=== PATIENT | male | born 1970 | race Two or more races ===

== ENCOUNTER 2025-02-08 15:39 | Emergency (ER) | payer MEDICAID, SELFPAY ==
[2025-02-08 15:40] VITALS: BMI 24.0
[2025-02-08 16:05] VITALS: BP 140/86; PULSE 93; RESP 19; TEMP 36.3; O2SAT 95
--- NOTE | 2025-02-08 16:10 | XR_ITS ---
Examination: Foot, right, 3 views Technique: AP, oblique, lateral views foot, 3 views Date and time of exam: January 31, 2025 1414 hours INDICATIONS: Nonhealing ulcer involving great toe, diabetes FINDINGS: Severe osteopenia. 3 mm erosion at the base of the proximal phalanx first digit Soft tissue swelling about the first digit IMPRESSION: Soft tissue swelling about the first digit 3 mm erosion at the base of the proximal phalanx first digit As clinically warranted, consider elective MRI foot without contrast follow-up
--- NOTE | 2025-02-08 16:12 | PD.EDRME ---
Rapid Medical Screening Exam [facility] Arrival date/time: 02/08/25 15:39 54-year-old male with a history of type 2 diabetes presents to the emergency room with a chief complaint of a diabetic foot ulcer to his right foot great toe. Patient states 3 weeks ago he nicked it on his shoe and since then the ulcer has progressively gotten worse. I have greeted and performed a focused initial assessment of this patient. A comprehensive ED assessment and evaluation of the patient, analysis of all test results, and completion of the medical decision making process will be conducted by additional ED providers. Chief Complaint: Wound/Laceration Vital signs: Vital Signs Temperature 97.4 F 02/08/25 16:05 Pulse Rate 93 02/08/25 16:05 Respiratory Rate 19 02/08/25 16:05 Blood Pressure 140/86 H 02/08/25 16:05 Pulse Oximetry (%) 95 02/08/25 16:05 Oxygen Delivery Method Room Air 02/08/25 16:05 Vital signs reviewed by provider: Yes
[2025-02-08 16:49] LABS: Lactate (Lactic Acid) 1.1 mMol/L (0.4-2.0)
[2025-02-08 16:52] LABS: Basophils # (Auto) 0.0 Thou/mm3 (0.0-0.2); Basophils % (Auto) 1 % (0-2.5); Eosinophils # (Auto) 0.1 Thou/mm3 (0.0-0.5); Eosinophils % (Auto) 1 % (0-10); Hematocrit 40.7 % (41.0-53.0); Hemoglobin 13.6 g/dL (13.5-16.0); Immature Granulocytes Auto 0.02 Thou/mm3 (0.00-0.00); Lymphocytes # (Auto) 2.2 Thou/mm3 (1.0-4.8); Lymphocytes % (Auto) 26 % (10-50); Mean Corpuscular HGB Conc 33.4 g/dl (31.0-37.0); Mean Corpuscular Hemoglobin 29.4 pg (25.0-35.0); Mean Corpuscular Volume 88 fL (80-100); Monocytes # (Auto) 0.6 Thou/mm3 (0.0-0.8); Monocytes % (Auto) 7 % (0-12); Neutrophils # (Auto) 5.5 Thou/mm3 (1.8-7.7); Neutrophils % (Auto) 65 % (37-80); Nucleated Red Blood Cell # 0.00 Thou/mm3 (0.00-0.00); Nucleated Red Blood Cell % 0 /100 WBC (0); Platelet Count 235 Thou/mm3 (140-440); RDW Standard Deviation 43.7 fL (35.1-43.9); Red Blood Count 4.63 Miln/mm3 (4.50-5.90); White Blood Count 8.5 Thou/mm3 (3.8-10.6)
[2025-02-08 17:23] LABS: Alanine Aminotransferase 11 U/L (10-49); Albumin, Serum 4.5 gm/dL (3.5-5.0); Albumin/Globulin Ratio 1.5 (1.2-2.2); Alkaline Phosphatase 92 U/L (46-116); Anion Gap 10 (7-16); Aspartate Amino Transferase 20 U/L (0-34); BUN/Creatinine Ratio 13 Ratio (12-20); Bilirubin,Total 0.5 mg/dL (0.3-1.2); Blood Urea Nitrogen 12 mg/dL (9-23); C-Reactive Protein < 0.5 mg/dL (0.0-0.9); Calcium 9.4 mg/dL (8.3-10.6); Calcium (Corrected) 9.4 mg/dL (8.5-10.1); Carbon Dioxide 25.2 mMol/L (20.0-31.0); Chloride 108 mMol/L (98-107); Creatinine (Component) 0.9 mg/dL (0.6-1.3); Estimated Creatinine Clearance 78.6 mL/min (>60); Globulin 3.1 gm/dL (2.3-3.5); Glucose 180 mg/dL (74-106); Osmolality,Calculated 289 (275-295); Potassium 4.2 mMol/L (3.4-5.1); Procalcitonin 0.06 ng/ml (0.0-0.49); Sodium 143 mMol/L (136-145); Total Protein 7.6 gm/dL (5.7-8.2); eGFR > 60 See Note
[2025-02-08 17:49] LABS: Glucose Estimated Average 260 mg/dL (80-131); Hemoglobin A1C 10.7 % Hgb (4.8-6.0)
[2025-02-08 17:59] LABS: Sed Rate (ESR) 16 mm/hr (0-20)
--- NOTE | 2025-02-08 19:43 | PD.EDWOUND ---
ED Wound/Laceration-RME/HPI General Chief Complaint: Wound/Laceration Stated Complaint: RIGHT GREAT TOE WOUND, HISTORY DM Arrival date/time: 02/08/25 15:39 RME / HPI RME / HPI narrative: 02/08/25 15:39 54-year-old male with a history of type 2 diabetes presents to the emergency room with a chief complaint of a diabetic foot ulcer to his right foot great toe. Patient states 3 weeks ago he nicked it on his shoe and since then the ulcer has progressively gotten worse. I have greeted and performed a focused initial assessment of this patient. A comprehensive ED assessment and evaluation of the patient, analysis of all test results, and completion of the medical decision making process will be conducted by additional ED providers. DR. BULLOCK MAIN ED EVALUATION: 54 y/o male with Hx of Type II DM presents to ED c/o wound with discharge of the right greater toe x 3 weeks. Patient has not noted active discharge, but has noticed dried discharge on his sandal to the imprint of his toe. Patient takes oral medication for management of his DM. No other concerns or complaints expressed at this time. Related Data Previous Rx's ?Medication ?Instructions ?Recorded ibuprofen 600 mg tablet 600 mg PO Q6HR PRN PAIN #30 tabs 01/02/15 Allergies Allergy/AdvReac Type Severity Reaction Status Date / Time No Known Allergies Allergy Verified 02/08/25 15:40 Review of Systems Review of Systems Systems Reviewed: All systems reviewed, normal except as documented Past Medical History Past Medical History ENDOCRINE: Positive Diabetes Mellitus Type 2 Social History SMOKING STATUS: Never smoker ED Exam Narrative Physical exam: Generally patient is alert no obvious distress heart is regular rate and rhythm lungs consultation equal bilaterally abdomen soft bowel sounds present nondistended nontender extremities show a callus with central wound to the undersurface of the right great toe. Mild amount of moist discharge. He does have a palpable dorsalis pedis pulse to the right foot. Course Quality Measures none Orders Category Date Time Status XR foot comp RT min 3V Stat Exams 02/08/25 16:10 Completed A1C [Glycohemoglobin w (eAG)] Stat Lab 02/08/25 16:24 Completed Blood Culture (Lab) Stat Lab 02/08/25 16:24 Received CBC Stat Lab 02/08/25 16:24 Completed CMP [Comprehensive Metabolic Panel] Stat Lab 02/08/25 16:24 Completed CRP [C-Reactive Protein] Stat Lab 02/08/25 16:24 Completed ESR [Sed Rate (ESR)] Stat Lab 02/08/25 16:24 Completed Lactate (Lactic Acid) Stat Lab 02/08/25 16:24 Completed Procalcitonin Stat Lab 02/08/25 16:24 Completed Vital Signs Vital signs: Vital Signs Temperature 97.4 F 02/08/25 16:05 Pulse Rate 93 02/08/25 16:05 Respiratory Rate 19 02/08/25 16:05 Blood Pressure 140/86 H 02/08/25 16:05 Pulse Oximetry (%) 95 02/08/25 16:05 Oxygen Delivery Method Room Air 02/08/25 16:05 Wound / Laceration MDM Narrative MDM Narrative:: Scribe Attestation: I, Niurka Tarango, am scribing for and in the presence of Dr. Bullock. Provider Notation: Although this document has been carefully reviewed, there may still be some phonetic and other typographical errors.? These errors are purely grammatical due to imperfections in the software program and should not be construed in any way to? compromise the substance of the patient's medical care during this visit. I interpreted all lab work. X-ray shows 3 mm erosion at the base of the proximal phalanx of the right first toe. Patient has a primary care physician and will need to be referred to a edm operator. Patient's blood sugar is 180. He is a diabetic but not insulin-dependent. He is compliant with his medications. Patient was started on cephalexin and Bactrim to be taken as prescribed. Patient data External records reviewed:: [facility] previous records (No prior ED records available for review.) Clinical information provided by:: patient Social determinants that could affect healthcare access:: none Patient has the following chronic illnesses:: Type II DM How is presenting disease/condition affected by chronic disease/condition?: exacerbated by Evaluation data The following diagnostics were reviewed and interpreted by me:: lab results and radiology exam(s) Lab and/or radiology exams considered but not ordered:: None Interpretation Summary: RADIOLOGY Right Foot X-Ray: FINDINGS: Severe osteopenia. 3 mm erosion at the base of the proximal phalanx first digit Soft tissue swelling about the first digit IMPRESSION: Soft tissue swelling about the first digit 3 mm erosion at the base of the proximal phalanx first digit As clinically warranted, consider elective MRI foot without contrast follow-up Medications / Prescriptions Medications or Prescriptions considered but not ordered:: None Medication administrations:: See above if any. Consultations Consultation(s) initiated? (list below): No Diagnosis Wound Differential Diagnosis: laceration, abscess, abrasion and other (Cellulitis) Most likely diagnosis given after review of the tests above:: None Admission Indicated Admission indicated?: not indicated Explain why admission is indicated or not indicated:: Patient does not meet admission criteria. Admission Request Was there a request for admission?: No Disposition Plan Disposition Plan: Discharge Discharge Attestation Discharge Attestation: The patient and all family members were given an opportunity to ask questions and understood the discharge instructions. Discharge instructions specifically effects, indications for sooner follow up or return to the emergency department, and the expected course of current diagnosis. Patient condition: Stable Discharge Plan Plan Patient Disposition: HOME (Self Care) Prescriptions/Referrals Prescriptions/Med Rec: No Action ibuprofen 600 MG tablet 600 mg PO Q6HR PRN (Reason: PAIN) Qty: 30 0RF Referrals: Bala Lewis MD [Primary Care Provider] - In 1 week Problem List Clinical Impression: Osteomyelitis, Diabetes mellitus Patient/Caregiver Discharge Instructions Additional Instructions: Take the antibiotics as prescribed. Follow-up with your doctor for podiatry referral. Print Language: Bahraini Stand Alone Forms: Hayley Award Info., Patient Portal Info Letter
== END 2025-02-08 20:35 | disposition home or self-care (01) ==
PROVIDERS: Nurse Practitioner Family; Emergency Provider Emergency Medicine; PCP Family Medicine
DX: E11.69 Type 2 diabetes mellitus with other specified complication (principal); M86.8X7 Other osteomyelitis, ankle and foot
CPT/HCPCS: 36415; 73630; 80053; 83036; 83605; 84145; 85025; 85652; 86140; 87040; 99283